=== PATIENT | male | born 1950 | race Caucasian/White ===

== ENCOUNTER → 2019-12-05 08:49 | Outpatient (CLI) | payer MEDICARE | END | disposition home or self-care (01) | LOC: D.RAD 08:49 | PROVIDERS: ATTEND Family Medicine | DX: K21.9 Gastro-esophageal reflux disease without esophagitis (principal) ==

== ENCOUNTER → 2020-01-15 09:30 | Outpatient (CLI) | payer MEDICARE | END | disposition home or self-care (01) | LOC: D.RAD 09:30 | PROVIDERS: ATTEND Family Medicine | DX: R05 Cough (principal) ==